=== PATIENT | male | born 1985 | race Two or more races ===

== ENCOUNTER 2019-12-28 19:18 | Emergency (ER) | payer SELFPAY ==
[~2019-12-28] VITALS: Ht 180.3 cm; Wt 102.1 kg
[2019-12-28 19:50] VITALS: BP 154/95
[2019-12-28] MEDS ORDERED: Ketorolac 30mg Inj IV ONE (20:00)
[2019-12-28 20:13] LABS: BASOPHILS % (AUTO) 1.4 % (0.0-2.0); EOSINOPHILS % (AUTO) 8.2 % (0.0-3.0); HEMOGLOBIN 15.6 G/DL (14.2-18.0); LYMPHOCYTES % (AUTO) 38.6 % (20.0-45.0); MEAN CORPUSCULAR VOLUME 91 FL (80-99); MONOCYTES % (AUTO) 7.8 % (1.0-10.0); PLATELET COUNT 229 K/UL (150-450); RED BLOOD COUNT 5.28 M/UL (4.70-6.10); RED CELL DISTRIBUTION WIDTH 13.6 % (11.6-14.8); WHITE BLOOD COUNT 8.2 K/UL (4.8-10.8)
[2019-12-28 20:14] LABS: APPEARANCE,URINE CLEAR; BILIRUBIN, URINE NEGATIVE (NEGATIVE); COLOR,URINE PALE YELLOW; GLUCOSE, URINE (UA) NEGATIVE (NEGATIVE); KETONES,URINE NEGATIVE (NEGATIVE); LEUKOCYTE ESTERASE ,URINE NEGATIVE (NEGATIVE); NITRITE,URINE NEGATIVE (NEGATIVE); PH,URINE 7 (4.5-8.0); PROTEIN,URINE NEGATIVE (NEGATIVE); UROBILINOGEN,URINE NORMAL MG/DL (0.0-1.0)
--- NOTE | 2019-12-28 20:36 | Emergency Room Report ---
History of Present Illness General Chief Complaint: Male Urogenital Problems Source: Patient Present Illness HPI 34-year-old male with history of trauma to the groin that occurred few months ago and has not had to seek any medical attention here complaining of sudden onset of hematuria and bilateral groin pain. Denies any penile discharge. Reports that he is sexually active with the same partner and denies any history of STD. Denies fever and chills, nausea vomiting. Complains of right-sided flank pain that started about a week ago and now radiating to the suprapubic area rating a 3 out of 10. Denies any history of renal stones. Denies dysuria urinary frequency. Reports that he only had one episode of blood-tinged urine earlier today. Patient has been taking ibuprofen for pain with minimal relief. Denies any pain medication at this time. Denies cough and congestion, shortness of breath, headache and dizziness. Denies any scrotal pain at this time. Reports that during the marathon few months ago patient fell and hurt both sides of groin however has not seek any medical attention since then. Allergies: Coded Allergies: No Known Allergies (Unverified , 12/28/19) COVID-19 Screening Contact w/high risk pt: No Experienced COVID-19 symptoms?: No COVID-19 Testing performed MILK HANDLER: No Patient History Past Medical History: see triage record Past Surgical History: none Pertinent Family History: none Social History: Reports: smoking, drug use - marijuana Immunizations: UTD Reviewed Nursing Documentation: PMH: Agreed; PSxH: Agreed Nursing Documentation-PMH Hx Cardiac Problems: No Hx Hypertension: No Hx Pacemaker: No Hx Asthma: Yes Hx COPD: No Hx Diabetes: No Hx Cancer: No Hx Gastrointestinal Problems: No Hx Dialysis: No History Of Psychiatric Problem: No Hx Neurological Problems: No Hx Cerebrovascular Accident: No Hx Seizures: No Review of Systems All Other Systems: negative except mentioned in HPI Physical Exam Vital Signs Date Time Temp Pulse Resp B/P (MAP) Pulse Ox O2 Delivery O2 Flow Rate FiO2 12/28/19 19:33 98.1 66 22 154/95 (114) 97 Room Air Sp02 EP Interpretation: reviewed, normal General Appearance: no apparent distress, alert, GCS 15, non-toxic Head: normocephalic, atraumatic Eyes: bilateral eye normal inspection, bilateral eye PERRL ENT: hearing grossly normal, normal pharynx, no angioedema, normal voice Neck: full range of motion, supple/symm/no masses Respiratory: chest non-tender, lungs clear, normal breath sounds, speaking full sentences Cardiovascular #1: regular rate, rhythm, no edema Gastrointestinal: normal bowel sounds, non tender, soft, no mass, non-distended , no guarding, no rebound Genitourinary: no CVA tenderness Musculoskeletal: back normal Neurologic: alert, motor strength/tone normal, oriented x3, sensory intact, responsive, speech normal Psychiatric: judgement/insight normal, memory normal, mood/affect normal, no suicidal/homicidal ideation Skin: no rash Lymphatic: no adenopathy Medical Decision Making PA Attestation All diagnosis and treatment plans were discussed and reviewed by my supervising physician Dr. Villegas Diagnostic Impression: Primary Impression: Hematuria ER Course 34-year-old male with history of trauma to the groin that occurred few months ago and has not had to seek any medical attention here complaining of sudden onset of hematuria and bilateral groin pain. Denies any penile discharge. Reports that he is sexually active with the same partner and denies any history of STD. Denies fever and chills, nausea vomiting. Complains of right-sided flank pain that started about a week ago and now radiating to the suprapubic area rating a 3 out of 10. Denies any history of renal stones. Denies dysuria urinary frequency. Reports that he only had one episode of blood-tinged urine earlier today. Patient has been taking ibuprofen for pain with minimal relief. Denies any pain medication at this time. Denies cough and congestion, shortness of breath, headache and dizziness. Denies any scrotal pain at this time. Reports that during the marathon few months ago patient fell and hurt both sides of groin however has not seek any medical attention since then. Ddx considered but are not limited to: Pyelonephritis, renal stone, epididymitis , hydrocele, varicocele, UTI, Vital signs: are WNL, pt. is afebrile H&PE are most consistent with: hematuria ORDERS:CT abdomen pelvis no contrast, scrotal ultrasound, CBC, CMP, UA, CK, motrin ED INTERVENTIONS: NS bolus, Rocephin, Azitromycin however patient refused to get the treatment unless to be tested first I gave a list of clinics that he can get tested. DISCHARGE: At this time pt. is stable for d/c to home. Will provide printed patient care instructions, and any necessary prescriptions. Care plan and follow up instructions have been discussed with the patient prior to discharge. Take medication as directed, follow primary care provider, this can be secondary to STD, follow-up primary care provider, worsening symptoms return to emergency room CT/MRI/US Diagnostic Results CT/MRI/US Diagnostic Results #1: Imaging Test Ordered: Scrotal ultrasound Impression FINDINGS: Right testicle: Right testicle 3.6 x 3 x 3.2 cm No torsion. Left testicle: Left testicle 4 x 2.2 x 3.2 cm No torsion. Epididymides: Unremarkable. Scrotum: Unremarkable. IMPRESSION: 1. No acute findings in the scrotum. 2. Unremarkable study. CT/MRI/US Diagnostic Results #2: Imaging Test Ordered: CT abdomen pelvis no contrast Impression FINDINGS: Lung bases: Unremarkable. No mass. No consolidation. ABDOMEN: Liver: Unremarkable. Gallbladder and bile ducts: Unremarkable. No calcified stones. No ductal dilation. Pancreas: Unremarkable. No ductal dilation. Spleen: Unremarkable. No splenomegaly. Adrenals: Unremarkable. No mass. Kidneys and ureters: Unremarkable. No obstructing stones. No hydronephrosis. Stomach and bowel: Unremarkable. No obstruction. No mucosal thickening. PELVIS: Appendix: No findings to suggest acute appendicitis. Bladder: Unremarkable. No stones. Reproductive: Unremarkable as visualized. ABDOMEN and PELVIS: Intraperitoneal space: Unremarkable. No free air. No significant fluid collection. Bones/joints: No acute fracture. No dislocation. Soft tissues: Unremarkable. Vasculature: Unremarkable. No abdominal aortic aneurysm. Lymph nodes: Unremarkable. No enlarged lymph nodes. IMPRESSION: 1.No acute abnormality definitively identified to account for patient presentation. 2.Unremarkable study. Last Vital Signs Date Time Temp Pulse Resp B/P (MAP) Pulse Ox O2 Delivery O2 Flow Rate FiO2 12/28/19 19:50 98.1 66 22 154/95 97 Room Air Disposition: HOME, SELF-CARE Condition: Stable Scripts Ibuprofen* (MOTRIN*) 600 Mg Tablet 600 MG ORAL Q6H PRN for For Pain, #30 TAB 0 Refills Prov: Rodrigue Reinoso 12/28/19 Patient Instructions: Hematuria, Adult Additional Instructions: Take medication as directed, follow-up with your primary care provider, increase oral hydration, worsening symptoms return to emergency room Rodrigue Reinoso Dec 28, 2019 20:36
[2019-12-28 20:37] LABS: ANION GAP 8 mmol/L (5-15); BLOOD UREA NITROGEN 17 mg/dL (7-18); CALCIUM 9.4 MG/DL (8.5-10.1); CARBON DIOXIDE 31 MMOL/L (21-32); CHLORIDE 101 MMOL/L (98-107); POTASSIUM 3.5 MMOL/L (3.5-5.1); SODIUM 140 MMOL/L (136-145)
[2019-12-28 20:42] LABS: ALANINE AMINOTRANSFERASE 32 U/L (12-78); ALBUMIN 5.1 G/DL (3.4-5.0); ALBUMIN/GLOBULIN RATIO 1.4 (1.0-2.7); ALKALINE PHOSPHATASE 89 U/L (46-116); ASPARTATE AMINO TRANSFERASE 9 U/L (15-37); BILIRUBIN,TOTAL 0.2 MG/DL (0.2-1.0); CREATINE KINASE 114 U/L (26-308)
--- NOTE | 2019-12-28 20:51 | Diagnostic Imaging Report ---
EXAM: US Scrotum CLINICAL HISTORY: PAIN TECHNIQUE: Real-time ultrasound of the scrotum with color Doppler and image documentation. COMPARISON: No relevant prior studies available. FINDINGS: Right testicle: Right testicle 3.6 x 3 x 3.2 cm No torsion. Left testicle: Left testicle 4 x 2.2 x 3.2 cm No torsion. Epididymides: Unremarkable. Scrotum: Unremarkable. IMPRESSION: 1. No acute findings in the scrotum. 2. Unremarkable study.
[2019-12-28 21:09] VITALS: BP 144/82
--- NOTE | 2019-12-28 21:10 | Diagnostic Imaging Report ---
EXAM: CT Abdomen and Pelvis Without Intravenous Contrast CLINICAL HISTORY: PAIN TECHNIQUE: Axial computed tomography images of the abdomen and pelvis without intravenous contrast. CTDI is 11 mGy and DLP is 654 mGy-cm. One or more of the following dose reduction techniques were used: automated exposure control, adjustment of the mA and/or kV according to patient size, use of iterative reconstruction technique. Sagittal reformatted images were created and reviewed. COMPARISON: No relevant prior studies available. FINDINGS: Lung bases: Unremarkable. No mass. No consolidation. ABDOMEN: Liver: Unremarkable. Gallbladder and bile ducts: Unremarkable. No calcified stones. No ductal dilation. Pancreas: Unremarkable. No ductal dilation. Spleen: Unremarkable. No splenomegaly. Adrenals: Unremarkable. No mass. Kidneys and ureters: Unremarkable. No obstructing stones. No hydronephrosis. Stomach and bowel: Unremarkable. No obstruction. No mucosal thickening. PELVIS: Appendix: No findings to suggest acute appendicitis. Bladder: Unremarkable. No stones. Reproductive: Unremarkable as visualized. ABDOMEN and PELVIS: Intraperitoneal space: Unremarkable. No free air. No significant fluid collection. Bones/joints: No acute fracture. No dislocation. Soft tissues: Unremarkable. Vasculature: Unremarkable. No abdominal aortic aneurysm. Lymph nodes: Unremarkable. No enlarged lymph nodes. IMPRESSION: 1.No acute abnormality definitively identified to account for patient presentation. 2.Unremarkable study.
[2019-12-28] MEDS ORDERED: IBUPROFEN600 M1 ORAL (21:14)
[2019-12-28] MEDS ORDERED: Azithromycin 250mg tab ORAL ONE (21:15)
[2019-12-28] MEDS ORDERED: Lidocaine 1% MPF 10mg/ml 5ml INJ ONE (21:15)
[2019-12-28 21:26] VITALS: BP 144/82
== END 2019-12-28 21:26 | disposition home or self-care (01) ==
LOC: EMR 21:26
DX: R31.9 Hematuria, unspecified (principal); J45.909 Unspecified asthma, uncomplicated; F17.200 Nicotine dependence, unspecified, uncomplicated; F12.90 Cannabis use, unspecified, uncomplicated
CPT/HCPCS: 36415; 74176; 76870; 80053; 81003; 82550; 85025; 96360; 99284; J7030